=== PATIENT | female | born 1965 | race Caucasian/White ===

== ENCOUNTER 2023-07-14 14:01 | Outpatient (CLI) | payer BC, SELFPAY | END 2023-07-14 14:02 | disposition home or self-care (01) | LOC: NFLDREF 07-15 12:13 | PROVIDERS: PCP Physician Assistant Medical; Referring Provider Physician Assistant Medical; Visit Provider Physician Assistant Medical | DX: R74.8 Abnormal levels of other serum enzymes (principal); R79.89 Other specified abnormal findings of blood chemistry | CPT/HCPCS: 80076; 86703; 86803 ==

== ENCOUNTER 2024-06-22 08:15 | Outpatient (CLI) | payer BC, SELFPAY | END 2024-06-22 08:16 | disposition home or self-care (01) | PROVIDERS: PCP Physician Assistant Medical; Referring Provider Physician Assistant Medical; Visit Provider Physician Assistant Medical | DX: Z00.00 Encounter for general adult medical examination without abnormal findings (principal); R74.8 Abnormal levels of other serum enzymes; E78.5 Hyperlipidemia, unspecified; N95.1 Menopausal and female climacteric states; Z11.3 Encounter for screening for infections with a predominantly sexual mode of transmission; Z11.59 Encounter for screening for other viral diseases | CPT/HCPCS: 80053; 80061; 84443; 86703; 86803 ==

== ENCOUNTER 2025-02-28 09:51 | Outpatient (CLI) | payer BC, SELFPAY | END 2025-02-28 09:52 | disposition home or self-care (01) | PROVIDERS: PCP Physician Assistant Medical; Visit Provider Emergency Medicine | DX: K59.00 Constipation, unspecified (principal) | CPT/HCPCS: 84443; 86140 ==

== ENCOUNTER 2025-04-11 10:52 | Emergency (ER) | payer BC, SELFPAY ==
[2025-04-11 11:10] VITALS: BP 154/95; PULSE 76; RESP 16; TEMP 36.6; O2SAT 98; BMI 22.6
--- NOTE | 2025-04-11 11:17 | ED.GENADULT ---
HPI - General Adult General Date Seen: 04/11/25 Chief complaint: Extremity Pain/Injury, Lower Stated complaint: referred from urgent care for ultrasound Time Seen by Provider: 04/11/25 11:09 History of Present Illness HPI narrative: Patient is a 60-year-old woman here for evaluation of pain and some redness in her left leg. She noticed this initially near the medial knee a couple of days ago and it is now chronic extending up into the groin area. There is some associated redness, it feels ?bruised, but she has not had any trauma to the area. She does have a history DVT remotely, she had a Mirena IUD at the time and has not had any further DVT since removal of that 16 years ago. No recent immobility or injuries. She has had a little bit of an intermittent dry cough for the past couple of weeks, did start on mesalamine for ulcerative colitis and there was a question of whether this may be a side effect from that. She has not had chest pain or shortness of breath. No hemoptysis. No history of bloody stools related to her ulcerative colitis. She does not smoke, no hormone replacement currently. Related Data Home Medications ?Medication ?Instructions ?Recorded ?Confirmed mesalamine 1.2 gram tablet,delayed 4.8 g PO DAILY 04/05/25 04/11/25 release acetaminophen 300 mg-codeine 30 mg 1 tab PO Q4-6H PRN pain 04/11/25 04/11/25 tablet amoxicillin 500 mg capsule 500 mg PO QID 04/11/25 04/11/25 Previous Rx's ?Medication ?Instructions ?Recorded venlafaxine 37.5 mg 37.5 mg PO QDAY #90 caps 04/05/25 capsule,extended release 24 hr apixaban 5 mg (74 tabs) tablets in See Rx Instructions PO .COMPLEX 04/11/25 a dose pack (Eliquis DVT-PE Treat #74 ea 30D Start) apixaban 5 mg (74 tabs) tablets in See Rx Instructions PO .COMPLEX 04/11/25 a dose pack (Eliquis DVT-PE Treat #74 ea 30D Start) Allergies Allergy/AdvReac Type Severity Reaction Status Date / Time aspirin Allergy Intermediate Hives Verified 04/11/25 11:14 Review of Systems Status of ROS: Reports: 6 or more systems reviewed and unremarkable except as noted in History and below PFSH PFSH Medical History Constipation ?K59.00 - Constipation, unspecified (ICD-10) Congenital dysplasia of hip ?Q65.89 - Other specified congenital deformities of hip (ICD-10) Thrombophlebitis of superficial veins of left lower extremity ?I80.02 - Phlebitis and thrombophlebitis of superficial vessels of left lower extremity (ICD-10) Hx of deep venous thrombosis ?Z86.718 - Personal history of other venous thrombosis and embolism (ICD-10) Surgical History History of right hip replacement ?Z96.641 - Presence of right artificial hip joint (ICD-10) History of hip surgery ?Z98.890 - Other specified postprocedural states (ICD-10) Family History Father Alcohol dependence Drug dependence High blood pressure Mother High blood pressure Sister Thyroid disease Social History Narrative: 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 Eyes: Sclera clear. Pupils equal and reactive. ENT: Mucous membranes moist. Neck: Supple without adenopathy. Heart: Regular rate and rhythm without murmur. Lungs: Clear. No increased work of breathing, crackles or wheezes. Abdomen: Soft, nontender to palpation. Extremities: No significant edema. Right lower extremity is unremarkable. On the left, there is faint erythema in the medial upper thigh, mildly tender, no obvious masses or fluctuance. Neurologic: Alert, conversant. Speech fluent, face symmetric. Moves all extremities equally. Skin: Warm, dry well perfused. Affect: Normal. Const: Vital Signs, click to edit/add: Vital Signs - 24 hr 04/11/25 11:10 04/11/25 12:53 Temperature 97.8 F Pulse Rate [Pulse Oximeter] 76 78 Respiratory Rate 16 20 Blood Pressure [Le ft Upper Arm] 154/95 H 138/84 Pulse Oximetry 98 Oxygen Delivery Me thod Room Air Course Course ED Course: I think it is reasonable to start with an ultrasound, she was referred here from urgent care and had an elevated D-dimer done there. If ultrasound is positive, discussed with her I think we can treat for acute DVT. She does not have any hypoxia tachycardia or tachypnea here, does not have any significant complaints suggesting large burden PE. Would recommend CT if the ultrasound happens to be negative. Venous Doppler results are reviewed, she has clot in the greater saphenous vein extending just into the common femoral. Discussed this diagnosis with her and recommended Eliquis for treatment. The she is comfortable with that. She would like to avoid a CT scan unless absolutely necessary a she just had an abdominal CT scan last week. I think it is quite reasonable given the clinical context to start her on anticoagulation without chest imaging today. Reviewed reasons to return such as severe swelling or pain in the leg, chest pain, shortness of breath, fainting or other significant new symptoms. Otherwise, recommend primary care follow-up in the next week or 2 for recheck and to discuss duration of anticoagulation. Vital Signs Vital signs: Initial Vital Signs Temperature 97.8 F 04/11/25 11:10 Temperature Source Temporal Artery Scan 04/11/25 11:10 Pulse Rate 76 04/11/25 11:10 Respiratory Rate 16 04/11/25 11:10 Blood Pressure 154/95 H 04/11/25 11:10 Blood Pressure Mean 114 H 04/11/25 11:10 Pulse Oximetry 98 04/11/25 11:10 Oxygen Delivery Method Room Air 04/11/25 11:10 Vital Signs Temperature 97.8 F 04/11/25 11:10 Pulse Rate 76 04/11/25 11:10 Respiratory Rate 16 04/11/25 11:10 Blood Pressure 154/95 H 04/11/25 11:10 Pulse Oximetry 98 04/11/25 11:10 Oxygen Delivery Method Room Air 04/11/25 11:10 Temperature 97.8 F 04/11/25 11:10 Pulse Rate 78 04/11/25 12:53 Respiratory Rate 20 04/11/25 12:53 Blood Pressure 138/84 04/11/25 12:53 Pulse Oximetry 98 04/11/25 11:10 Oxygen Delivery Method Room Air 04/11/25 11:10 Medical Decision Making Imaging Data Left leg ultrasound: Attestation: I have reviewed the pertinent imaging results. Radiologist's impression: Patient: Madeleine Smith MR#: [id number] : 1965 Acct:[id number] Loc: ED Service Date: 04/11/[address]: Ordering Physician: Jo Ann Fischer M.D. Date of Service: 04/11/25 Procedure(s): US venous LE LT Accession Number(s): [id number] cc: Jo Ann Fischer M.D.; Aura TAVERAS~ For Patients: As a result of the Cures Act, medical imaging exams and procedure reports are released immediately into your electronic medical record. You may view this report before your referring provider. If you have questions, please contact your health care provider. Indication: Pain and redness left upper medial left thigh. Swelling. History of DVT. Technique: Grayscale, grayscale compression, color Doppler, spectral Doppler and augmentation technique was utilized for evaluating the left lower extremity venous system. The right common femoral vein was also studied. Comparison: None Findings: The right common femoral vein appears normal. The following structures were studied on the left: Common femoral vein, greater saphenous vein, deep femoral vein, femoral vein, popliteal vein, peroneal vein and posterior tibial vein. There is extensive superficial venous thrombosis of the left greater saphenous vein from approximately the knee to the saphenous femoral junction. This appears to be acute and occlusive. This clot extends into the common femoral vein where there is acute, focally occlusive clot of the left common femoral vein. The remainder of the venous structures in the left lower extremity appear normal Discussed with Dr. Jo Ann Fischer at 12:30 p.m. on 04/11/2025 Impression: 1. Acute occlusive thrombus of the left common femoral vein. This likely represents the superior extension of extensive occlusive clot the left greater saphenous vein extending from approximately the knee joint into the left common femoral vein. 2. The remainder of the left lower extremity venous system is normal. 3. The right common femoral vein appears normal Dictated by Toño Cota MD @ 04/11/2025 12:36:19 PM Discharge Plan Discharge Clinical Impression: Deep vein thrombosis (DVT) of left lower extremity Patient Disposition: Home, Self-Care Condition: Stable Instructions: Deep Vein Thrombosis (DC), Blood Thinners (ED) Additional Instructions: Your ultrasound shows clot essentially in the same place as last time, in the greater saphenous vein, but this does extend a little bit into the common femoral vein which is in the deep venous system. Therefore, I have sent a prescription for you for Eliquis, a blood thinner. Please follow-up with your primary doctor in the next week or so for recheck. If at any time you feel significantly worse, have severe swelling or pain, significant shortness of breath, lightheadedness, fainting, or chest pain, return to the ER. Prescriptions: New Eliquis DVT-PE Treat 30D Start 5 mg (74 tabs) tablets,dose pack See Rx Instructions .ROUTE .COMPLEX Qty: 74 0RF Rx Instructions: orally per package directions Eliquis DVT-PE Treat 30D Start 5 mg (74 tabs) tablets,dose pack See Rx Instructions .ROUTE .COMPLEX Qty: 74 0RF Rx Instructions: orally per package directions No Action mesalamine 1.2 gram tablet,delayed release (DR/EC) 4.8 g PO DAILY venlafaxine 37.5 mg capsule,extended release 24hr 37.5 mg PO QDAY Qty: 90 0RF amoxicillin 500 mg capsule 500 mg PO QID acetaminophen-codeine 300-30 mg tablet 1 tab PO Q4-6H PRN (Reason: pain) Follow Up/Referrals: Aura Orona PA-C [Primary Care Provider, Family Practice] Stand Alone Forms: MyHealth Info Instructions
[2025-04-11 12:53] VITALS: BP 138/84; PULSE 78; RESP 20
== END 2025-04-11 12:54 | disposition home or self-care (01) ==
PROVIDERS: Emergency Provider Emergency Medicine; PCP Physician Assistant Medical
DX: I82.512 Chronic embolism and thrombosis of left femoral vein (principal)
CPT/HCPCS: 93971; 99283; 99284

== ENCOUNTER 2025-05-06 14:38 | Outpatient (CLI) | payer BC, SELFPAY ==
--- NOTE | 2025-05-06 15:00 | CRLHL7_ITS ---
For Patients: As a result of the Century Cures Act, medical imaging exams and procedure reports are released immediately into your electronic medical record. You may view this report before your referring provider. If you have questions, please contact your health care provider. INDICATION: f/u acute thrombosis of left CFV and GSV, px on Eliquis COMPARISON: None. TECHNIQUE: A compression venous ultrasound exam was performed of the left lower extremity using dupree-scale imaging, color Doppler and spectral Doppler analysis. FINDINGS: Sonographic imaging of the left lower extremity demonstrates normal compressibility and color Doppler venous blood flow within the common femoral vein and deep femoral vein. Hypoechoic noncompressible clot within the distal left greater saphenous vein. Within the thigh, the femoral vein is patent and compressible. At a lower level, the popliteal and posterior tibial veins also show normal compressibility and color Doppler venous blood flow. Limited imaging of the contralateral groin demonstrates a normal spectral waveform and color Doppler venous blood flow within the right common femoral vein. IMPRESSION: Resolution of the previously noted left-sided DVT. Residual superficial clot in the distal left greater saphenous vein. Dictated by Humberto Cao MD @ 05/06/2025 8:39:50 PM (Electronically Signed)
== END 2025-05-06 14:39 | disposition home or self-care (01) ==
LOC: US 14:39
PROVIDERS: PCP Physician Assistant Medical; Visit Provider Physician Assistant Medical
DX: I82.402 Acute embolism and thrombosis of unspecified deep veins of left lower extremity (principal)
CPT/HCPCS: 93971

== ENCOUNTER 2025-06-14 14:13 | Outpatient (CLI) | payer BC, SELFPAY | END 2025-06-14 14:14 | disposition home or self-care (01) | PROVIDERS: PCP Physician Assistant Medical; Visit Provider Physician Assistant Medical | DX: I82.409 Acute embolism and thrombosis of unspecified deep veins of unspecified lower extremity (principal); K52.9 Noninfective gastroenteritis and colitis, unspecified | CPT/HCPCS: 80053; 81240; 81241; 83090; 85300; 85302; 85303; 85306; 85384; 86146; 86147 ==